=== PATIENT | male | born 1970 | race African-American/Black ===

== ENCOUNTER 2021-10-06 20:44 | Emergency (ER) | payer OTHER, MEDICAID ==
[~2021-10-06] VITALS: Ht 167.6 cm; Wt 95.2 kg
== END 2021-10-06 23:47 | disposition home or self-care (01) ==
LOC: ED 20:44
DX: S29.012A Strain of muscle and tendon of back wall of thorax, initial encounter (principal); J45.909 Unspecified asthma, uncomplicated; V89.2XXA Person injured in unspecified motor-vehicle accident, traffic, initial encounter
CPT/HCPCS: 72070; 99284-25